=== PATIENT | male | born 1975 | race Caucasian/White ===

== ENCOUNTER 2018-05-02 12:27 | Emergency (ER) | payer MEDICAID ==
[~2018-05-02] VITALS: Ht 175.3 cm; Wt 72.7 kg
[~2018-05-02 12:27] MED LIST: HYDR-4353 PO; IBUP-1984 PO
[2018-05-02] MEDS ORDERED: LIDOcaine 1% w/epiNEPHrine 1:200,000 30ml vial IM ONE (12:45)
[2018-05-02 14:01] VITALS: BP 134/92
== END 2018-05-02 13:52 | disposition home or self-care (01) ==
LOC: ER 12:27
DX: S51.812A Laceration without foreign body of left forearm, initial encounter (principal); G89.29 Other chronic pain; M54.9 Dorsalgia, unspecified; W26.8XXA Contact with other sharp object(s), not elsewhere classified, initial encounter; Y93.89 Activity, other specified; Y92.89 Other specified places as the place of occurrence of the external cause; Y99.8 Other external cause status
CPT/HCPCS: 12001; 99283; J3490

== ENCOUNTER 2018-05-03 10:16 | Emergency (ER) | payer MEDICAID ==
[~2018-05-03] VITALS: Ht 175.3 cm; Wt 72.0 kg
[2018-05-03 10:22] VITALS: BP 140/92
== END 2018-05-03 10:48 | disposition home or self-care (01) ==
LOC: ER 10:17
DX: S51.812D Laceration without foreign body of left forearm, subsequent encounter (principal); G89.29 Other chronic pain; Z90.49 Acquired absence of other specified parts of digestive tract; Z98.890 Other specified postprocedural states; Z79.899 Other long term (current) drug therapy; W26.8XXD Contact with other sharp object(s), not elsewhere classified, subsequent encounter
CPT/HCPCS: 99281

== ENCOUNTER 2018-05-09 10:10 | Emergency (ER) | payer MEDICAID ==
[~2018-05-09] VITALS: Ht 175.3 cm; Wt 74.0 kg
[2018-05-09 10:16] VITALS: BP 122/80
[2018-05-09] MEDS ORDERED: CEPH500C5 PO (10:34)
== END 2018-05-09 10:57 | disposition home or self-care (01) ==
LOC: ER 10:11
DX: T81.33XA Disruption of traumatic injury wound repair, initial encounter (principal); G89.29 Other chronic pain; M54.9 Dorsalgia, unspecified
CPT/HCPCS: 12001; 12020; 99283; 99284

== ENCOUNTER 2019-04-18 12:37 | Emergency (ER) | payer MEDICAID ==
[~2019-04-18] VITALS: Ht 175.3 cm; Wt 67.7 kg
[~2019-04-18 12:37] MED LIST changes: +CEPH500C5 PO
[2019-04-18 13:04] LABS: BASOPHILS % (AUTO) 0.4 % (0-1); EOSINOPHILS # (AUTO) 0.1 X10'3 (0-0.9); EOSINOPHILS % (AUTO) 1.4 % (0-6); HEMATOCRIT 42.1 % (42.0-52.0); HEMOGLOBIN 14.7 g/dl (14.0-17.9); LYMPHOCYTES # (AUTO) 1.3 X10'3 (1.1-4.8); LYMPHOCYTES % (AUTO) 14.7 % (21-51); MEAN CORPUSCULAR HEMOGLOBIN 31.9 PG (27.0-31.0); MEAN CORPUSCULAR VOLUME 91.3 FL (78-98); MEAN PLATELET VOLUME 7.5 FL (7.4-10.4); MONOCYTES # (AUTO) 0.6 X10'3 (0-0.9); MONOCYTES % (AUTO) 6.6 % (2-12); NEUTROPHILS # (AUTO) 6.6 X10'3 (1.8-7.7); NEUTROPHILS % (AUTO) 76.9 % (42-75); PLATELET COUNT 270 X10'3 (140-440); RED BLOOD COUNT 4.61 X10'6 (4.70-6.10); RED CELL DISTRIBUTION WIDTH 12.9 % (11.5-14.5); WHITE BLOOD COUNT 8.5 X10'3 (4.5-11.0)
[2019-04-18 13:08] LABS: CLARITY,URINE CLEAR (Clear); COLOR,URINE YELLOW (Yellow); GLUCOSE, URINE NEGATIVE (Neg); KETONES,URINE NEGATIVE (Neg); LEUKOCYTE ESTERASE ,URINE NEGATIVE (Neg); NITRITES, URINE NEGATIVE (Neg); OCCULT BLOOD,URINE NEGATIVE (Neg); PH,URINE 6.5 (4.8-8.0); PROTEIN,URINE NEGATIVE (Neg); UROBILINOGEN,URINE 0.2 E.U/dL (0.2-1.0)
[2019-04-18 13:11] LABS: UA COLLECTION TYPE CLN CATCH MIDSTREAM
[2019-04-18 13:29] LABS: ALANINE AMINOTRANSFERASE 18 U/L (12-78); ALBUMIN 3.5 G/DL (3.4-5.0); ALBUMIN/GLOBULIN RATIO 0.8 (1.1-1.5); ALKALINE PHOSPHATASE 77 IU/L (46-116); ANION GAP 7 (8-16); ASPARTATE AMINO TRANSFERASE 24 U/L (10-37); BILIRUBIN,TOTAL 0.4 MG/DL (0.1-1.0); BLOOD UREA NITROGEN 8 MG/DL (7-18); BUN/CREATININE RATIO 9.9 (5.4-32.0); CALCIUM 9.1 MG/DL (8.5-10.1); CHLORIDE 102 MMOL/L (99-107); CREATININE 0.81 MG/DL (0.60-1.10); GLUCOSE 96 MG/DL (70-104); LIPASE 118 U/L (73-393); SODIUM 139 MMOL/L (135-145); TOTAL CARBON DIOXIDE 29.8 MMOL/L (24-32); TOTAL PROTEIN 7.7 G/DL (6.4-8.2); eGFR > 90 ML/MIN
[2019-04-18] MEDS ORDERED: HYDROcodone/acetaminophen 5mg/325mg tablet PO ONE (14:45)
[2019-04-18] MEDS ORDERED: ketorolac trometh inj. 60 MG/2 ML VIAL IM ONE (14:45)
[2019-04-18] MEDS ORDERED: MELO-100 PO (14:47)
[2019-04-18] MEDS ORDERED: ACET-1025 PO (14:47)
[2019-04-18] MEDS ORDERED: MAGN296S68 PO (14:47)
[2019-04-18] MEDS ORDERED: PANT-47 PO (14:47)
[2019-04-18] MEDS ORDERED: BISA-79 PO (14:47)
[2019-04-18 15:02] VITALS: BP 134/107
== END 2019-04-18 15:03 | disposition home or self-care (01) ==
LOC: ER 12:38
DX: R07.81 Pleurodynia (principal); K59.00 Constipation, unspecified; R10.84 Generalized abdominal pain; G89.29 Other chronic pain; Z90.49 Acquired absence of other specified parts of digestive tract; Z98.890 Other specified postprocedural states; Z79.2 Long term (current) use of antibiotics; Z79.899 Other long term (current) drug therapy
CPT/HCPCS: 36415; 80053; 81003; 83690; 85025; 96372; 99283; J1885

== ENCOUNTER 2021-01-09 12:11 | Inpatient (IN) | payer MEDICAID ==
[~2021-01-09] VITALS: Ht 175.3 cm; Wt 52.6 kg
[~2021-01-09 12:11] MED LIST changes: +BISA-79 PO; -CEPH500C5 PO; +MAGN296S68 PO; +MELO-100 PO; +PANT-47 PO
[2021-01-09] MEDS ORDERED: morphine 4 MG/ML inj SYRINge IV ONE ×2 (13:40→14:45)
[2021-01-09 13:51] LABS: BASOPHILS % (AUTO) 0.2 % (0-1); EOSINOPHILS # (AUTO) 0.1 X10'3 (0-0.9); EOSINOPHILS % (AUTO) 0.4 % (0-6); HEMOGLOBIN 14.4 g/dl (14.0-17.9); LYMPHOCYTES # (AUTO) 0.9 X10'3 (1.1-4.8); LYMPHOCYTES % (AUTO) 7.5 % (21-51); MEAN CORPUSCULAR HEMOGLOBIN 31.7 PG (27.0-31.0); MEAN CORPUSCULAR HGB CONC 34.4 g/dL (33.0-36.5); MEAN CORPUSCULAR VOLUME 92.1 FL (78-98); MONOCYTES # (AUTO) 0.6 X10'3 (0-0.9); MONOCYTES % (AUTO) 4.9 % (2-12); NEUTROPHILS # (AUTO) 10.4 X10'3 (1.8-7.7); PLATELET COUNT 298 X10'3 (140-440); RED BLOOD COUNT 4.56 X10'6 (4.70-6.10); RED CELL DISTRIBUTION WIDTH 14.1 % (11.5-14.5)
[2021-01-09] MEDS ORDERED: iohexol 300mg/ml 100ml inj. ONE (14:09)
[2021-01-09 14:17] LABS: ALANINE AMINOTRANSFERASE 22 U/L (12-78); ALBUMIN 3.5 G/DL (3.4-5.0); ALBUMIN/GLOBULIN RATIO 0.8 (1.1-1.5); ALKALINE PHOSPHATASE 72 IU/L (46-116); ANION GAP 7 (8-16); ASPARTATE AMINO TRANSFERASE 20 U/L (10-37); BILIRUBIN,TOTAL 0.4 MG/DL (0.1-1.0); BLOOD UREA NITROGEN 9 MG/DL (7-18); BUN/CREATININE RATIO 10.5 (5.4-32.0); CALCIUM 8.8 MG/DL (8.5-10.1); CHLORIDE 104 MMOL/L (99-107); CREATININE 0.86 MG/DL (0.60-1.10); GLUCOSE 98 MG/DL (70-104); POTASSIUM 4.3 MMOL/L (3.5-5.1); SODIUM 141 MMOL/L (135-145); TOTAL CARBON DIOXIDE 29.6 MMOL/L (24-32); TOTAL PROTEIN 7.9 G/DL (6.4-8.2); eGFR > 90 ML/MIN
[2021-01-09] MEDS ORDERED: potassium Cl 20 mEq SR tablet PO PRN ×2 (17:05)
[2021-01-09] MEDS ORDERED: haloperidol lactate 5mg/ml inj IM PRN (17:05)
[2021-01-09] MEDS ORDERED: magnesium Cl slow-release 64mg tablet PO PRN (17:05)
[2021-01-09] MEDS ORDERED: dextrose 50%-water 50ml dispensing syringe IV PRN (17:05)
[2021-01-09] MEDS ORDERED: magnesium 2GM in 50ml NS 50 ML IV PRN (17:05)
[2021-01-09] MEDS ORDERED: LORazepam 1 MG tablet PO PRN (17:05)
[2021-01-09] MEDS ORDERED: potassium CL 10mEq/100ml bag 100 ML IV PRN (17:05)
[2021-01-09] MEDS ORDERED: LORazepam 2 mg/ml vial IV PRN (17:05)
[2021-01-09] MEDS ORDERED: acetaminophen 325mg tablet PO PRN (17:05)
[2021-01-09] MEDS ORDERED: magnesium 4gm in 100ml NS 100 ML IV PRN (17:05)
[2021-01-09] MEDS ORDERED: magnesium hydroxide 30ml (MOM) UD suspension PO PRN (17:05)
[2021-01-09] MEDS ORDERED: ondansetron/PF 4mg/2ml inj IV PRN (17:05)
[2021-01-09] MEDS ORDERED: mag hydrox/Alum hydrox/simeth 30ml oral suspension PO PRN (17:05)
[2021-01-09] MEDS ORDERED: haloperidol 5mg tablet PO PRN (17:05)
[2021-01-09] MEDS ORDERED: NO HOME MEDS (17:40)
[2021-01-09] MEDS: oxyCODONE/APAP 5-325mg tablet PO PRN ×2 (17:45→23:17)
[2021-01-09 18:43] LABS: MAGNESIUM 1.9 MG/DL (1.5-2.4)
[2021-01-09] MEDS: K and/or MAG REPLACEMENT MC SCH (19:21)
[2021-01-09 20:00] VITALS: BP 117/79
[2021-01-09] MEDS ORDERED: thiamine 100mg/ml 2ml inj. IV SCH (21:00)
[2021-01-09] MEDS: docusate sod 100mg capsule PO SCH (23:16)
[2021-01-09] MEDS: heparin, porcine 5000 units/ml vial SQ SCH (23:45)
[2021-01-10] VITALS: BP 114/81
[2021-01-10] MEDS: thiamine inj. 200 MG in normal saline 100ml IV soln 100 ML IV SCH ×3 (00:28→12:07)
--- NOTE | 2021-01-10 06:38 | NUR ---
Patient in room [facility]. I have received report from RN and had the opportunity to ask questions and assume patient care.
[2021-01-10] MEDS: oxyCODONE/APAP 10/325mg tablet PO PRN ×2 (06:46→10:43)
[2021-01-10 07:02] LABS: MAGNESIUM 1.9 MG/DL (1.5-2.4); POTASSIUM 3.8 MMOL/L (3.5-5.1)
[2021-01-10] MEDS: heparin, porcine 5000 units/ml vial SQ SCH (07:02)
[2021-01-10] MEDS: docusate sod 100mg capsule PO SCH (07:02)
[2021-01-10 08:00] VITALS: BP 117/77
[2021-01-10] MEDS: K and/or MAG REPLACEMENT MC SCH (08:00)
[2021-01-10] MEDS ORDERED: folic acid 1mg/0.2ml inj IV SCH (08:00)
--- NOTE | 2021-01-10 08:13 | NUR ---
Noted pt with a low BMI of 17.1 using scaled wt of 52.617 kg. Pt denied wt loss or decreased appetite per malnutrition risk screen with RN. Pending documentation of PO intake on regular diet. Per ED report pt has been able to tolerate PO and appears well developed well nourished. No documented edema. Pt currently lacks a minimum of two criteria for malnutrition. Will continue to follow. Addendum: 01/10/21 at [address] Amended: Links added.
[2021-01-10 12:00] VITALS: BP 116/78
[2021-01-10] MEDS ORDERED: PER5325T PO (12:21)
--- NOTE | 2021-01-10 14:00 | NUR ---
pt discharged in stable condition to home in private vehicle. Pt belongings sent with patient. Pt educated on discharge instructions. Iv removed tip intact no complications.
[2021-01-13] MEDS ORDERED: thiamine 100mg tablet PO SCH (08:00)
[2021-01-14] MEDS ORDERED: folic acid 1mg tablet PO SCH (08:00)
== END 2021-01-10 14:06 | disposition home or self-care (01) | DRG 82 ==
LOC: ER 12:12 → ED HOLD 17:40 → SUR 3N 20:30
PROVIDERS: ADMIT Surgery; ATTEND Surgery
PROC: BW251ZZ Computerized Tomography (CT Scan) of Chest, Abdomen and Pelvis using Low Osmolar Contrast (ICD-10-PCS; principal; 2021-01-09)
DX: S02.32XA Fracture of orbital floor, left side, initial encounter for closed fracture (principal); S27.1XXA Traumatic hemothorax, initial encounter; S22.41XA Multiple fractures of ribs, right side, initial encounter for closed fracture; T79.7XXA Traumatic subcutaneous emphysema, initial encounter; F12.90 Cannabis use, unspecified, uncomplicated; F17.210 Nicotine dependence, cigarettes, uncomplicated; H11.31 Conjunctival hemorrhage, right eye; G89.29 Other chronic pain; M54.9 Dorsalgia, unspecified; Z90.49 Acquired absence of other specified parts of digestive tract; Y08.89XA Assault by other specified means, initial encounter; Y93.89 Activity, other specified; Y92.89 Other specified places as the place of occurrence of the external cause; Y99.8 Other external cause status; Z79.899 Other long term (current) drug therapy
CPT/HCPCS: 36415; 70450; 70480; 71045; 71046; 71260; 74177; 80053; 82948; 83735; 84132; 85025; 85610; 86885; 86900; 86901; 87081; 96372; 97116; 97161; 97530; 99285; G0378; J1644; J2270; J3411; J3490; Q9967